=== PATIENT | female | born 1940 | race Caucasian/White ===

== ENCOUNTER 2017-12-16 23:30 | Inpatient (IN) | payer OTHER, MEDICARE ==
[~2017-12-16] VITALS: Ht 149.9 cm; Wt 59.0 kg
[~2017-12-16 23:30] MED LIST: LEVA250T PO; LISI-360 PO; MAGN400T19 PO; METO5TAB PO; OMEP20.62 PO; POTA-267 PO; SIMV40TA OR; XALA0.00 LEFT EYE
[2017-12-16 23:39] VITALS: BP 205/97; PULSE 80; RESP 18; TEMP 98.7; O2SAT 98
[2017-12-16 23:40] VITALS: O2SAT 98
[2017-12-16] MEDS ORDERED: SODIUM CHLOR 0.9% 1000 ML INJ 1,000 ML IV ONE (23:49)
[2017-12-16] MEDS ORDERED: PRAV20TA2 PO (23:55)
[2017-12-16] MEDS ORDERED: LISI2.5T3 PO (23:55)
[2017-12-16] MEDS ORDERED: LATA0.002 EACH EYE (23:55)
[2017-12-16] MEDS ORDERED: VENL37.5 PO (23:55)
[2017-12-17] VITALS (16 sets, daily range): BP systolic 149–205; BP diastolic 70–83; PULSE 64–87; RESP 15–19; TEMP 97.8–98.7; O2SAT 93–100
--- NOTE | 2017-12-17 | PD ---
HPI Chief Complaint: Stroke Alert Time Seen by Provider: 23:49 Travel History International Travel<30 days: No Contact w/Intl Traveler<30days: No Traveled to known affect area: No History of Present Illness HPI The patient is a 77 year old female who presents to the [facility] emergency department with a history of reportedly sometime between 930 and 10 PM this evening noticing she was having difficulty moving the right side of her face. The patient reports that she noticed that she had facial weakness when she tried to drink out of a bottle of water. She reports that she began to have drooling and had difficulty speaking due to problems moving the right side of her face. She reports having numbness on the right side of her face. She denies having any new numbness or tingling to her extremities. She reports that she at times over the last year does have numbness to the third digit of the left hand. She does report incidentally that she did have weakness of her left leg earlier today around dinnertime at 4 PM. She reports that she was able to walk and did not tell any family members. She reports that this has resolved. She denies any weakness of her extremities currently. She denies having any difficulty with word finding ability. She denies having any vision changes. She denies having any prior history of stroke. She reports that she takes a low-dose aspirin every other day. She did take a low-dose aspirin when she had onset of symptoms. The patient additionally reports that earlier today around 9 PM she had sudden left-sided chest pain that was sharp in character and lasted for a few seconds. She denies having any chest pain since then. She denies any history of cardiac disease. On review of systems otherwise, the patient denies having any known recent fevers, cough, congestion, neck pain, shortness of breath, abdominal pain, vomiting, diarrhea, blood in her stool or black or tarry stools, or urinary symptoms. [facility] Past Medical History Narrative Medical The patient's past medical history is significant for hypertension, hyperlipidemia, glaucoma. Asthma: No Blood Disorders: No Anxiety: No Depression: No Heart Rhythm Problems: No Cancer: No Cardiovascular Problems: Yes High Cholesterol: Yes Chemotherapy: No Chest Pain: No Congestive Heart Failure: No COPD: No Cerebrovascular Accident: No Diabetes: No Endocrine: No Gastrointestinal Disorders: No GERD: No Genitourinary: No Headaches: No Hiatal Hernia: No Hypertension: Yes Immune Disorder: No Musculoskeletal: No Neurologic: No Psychiatric: No Reproductive: No Respiratory: No Migraines: No Radiation Therapy: No Seizures: No Sickle Cell Disease: No Sleep Apnea: No Thyroid Disease: No Ulcer: No Tetanus Vaccination: < 5 Years Past Surgical History Narrative Surgical The patient's past surgical history is significant for an appendectomy, hysterectomy, cholecystectomy, laparoscopy with lysis of adhesions. AICD: No Appendectomy: Yes (2005) Arteriovenous Shunt: No Cardiac Surgery: No Cholecystectomy: No Hysterectomy: Yes (1982) Insulin Pump: No Joint Replacement: No Pacemaker: No Thoracic Surgery: No Social History Alcohol Use: No Tobacco Use: No Substance Use: No Allergies-Medications (Allergen,Severity, Reaction): Coded Allergies: No Known Allergies (Verified , 10/11/13) Reported Meds & Prescriptions Reported Meds & Active Scripts Active Reported Latanoprost Opth Drops (Latanoprost) 0.005% Drops 1 Drop EACH EYE HS Refrigerate until opened. Effexor (Venlafaxine HCl) 37.5 Mg Tab 37.5 Mg PO DAILY Lisinopril 2.5 Mg Tab Unknown Dose PO DAILY Pravastatin 20 Mg Tab 20 Mg PO DAILY Review of Systems Except as stated in HPI: all other systems reviewed are Neg General / Constitutional: No: Fever Eyes: No: Visual changes HENT: No: Headaches Cardiovascular: Positive: Chest Pain or Discomfort Respiratory: No: Shortness of Breath Gastrointestinal: No: Abdominal Pain Genitourinary: No: Dysuria Musculoskeletal: No: Pain Skin: No Rash Neurologic: Positive: Weakness, Focal Abnormalities, Slurred Speech, Sensory Disturbance, No: Change in Mentation Psychiatric: No: Depression Endocrine: No: Polydipsia Hematologic/Lymphatic: No: Easy Bruising Physical Exam Narrative General: The patient is a well-developed well-nourished female with obvious right-sided facial droop. Initial systolic blood pressure of 205. Head and Neck exam: Head is normocephalic atraumatic. Eyes: EOMI, pupils are equal round and reactive to light. Nose: Midline septum with pink mucous membranes Mouth: Dentition unremarkable. Moist mucus membranes. Posterior oropharynx is not erythematous. No tonsillar hypertrophy. Uvula midline. Airway patent. Neck: No palpable lymphadenopathy. No nuchal rigidity. No thyromegaly. Cardiovascular: Regular rate and rhythm without murmurs, gallops, or rubs. No pulse deficit to the extremities on simultaneous auscultation and palpation of her radial artery. Lungs: Clear to auscultation bilaterally. No wheezes, rhonchi, or rales. Abdomen: Soft, without tenderness to palpation in all 4 quadrants of the abdomen. No guarding, rebound, or rigidity. Normal bowel sounds are audible. No tenderness on palpation of McBurney's point. Negative Huston sign. Extremities: No clubbing, cyanosis, or edema. 2+ pulses in all 4 extremities. No calf tenderness on palpation. Back: No spinous process tenderness to palpation. No costovertebral angle tenderness to palpation. Neurologic Exam: The patient has a right-sided facial droop. The patient is able to raise both eyebrows. The patient has numbness noted to the right side of her face. The patient otherwise has strength that is 5/5 in all 4 extremities. Intact sensation in all other dermatomes. The patient has mildly slurred speech. The patient has no aphasia and is able to name various objects around the room. No dysdiadochokinesis. Good finger to nose. Skin Exam: No rash noted. Intact skin that is warm and dry. Data Data Last Documented VS Vital Signs Date Time Temp Pulse Resp B/P (MAP) Pulse Ox O2 Delivery O2 Flow Rate FiO2 12/17/17 00:40 69 18 162/73 (102) 96 12/16/17 23:40 21 12/16/17 23:39 98.7 Room Air Orders Orders Diet Npo (12/17/17 Breakfast) Activity Bed Rest (12/16/17 ) Electrocardiogram (12/16/17 ) I-Stat Profile (12/16/17 23:49) Prothrombin Time / Inr (Pt) (12/16/17 23:49) Act Partial Throm Time (Ptt) (12/16/17 23:49) Complete Blood Count With Diff (12/16/17 23:49) Fibrinogen (12/16/17 23:49) Creatine Kinase (Cpk) (12/16/17 23:49) Troponin I (12/16/17 23:49) Ua Includes Microscopic (12/16/17 23:49) Drug Screen, Random Urine (12/16/17 23:49) Type And Screen (12/16/17 23:49) Ct Brain W/O Iv Contrast(Rout) (12/16/17 ) Cta Brain W Iv Contrast W 3d (12/16/17 23:49) Cta Neck W Iv Contrast W 3d (12/16/17 23:49) Beta Hcg (Quant/Titer) (12/16/17 23:49) Consult Neurology (12/16/17 ) Blood Glucose (12/16/17 23:49) Ecg Monitoring (12/16/17 23:49) Neuro Checks Q2HX12,Q4H (12/16/17 23:49) Nursing Bedside Swallow Assess .ONCE (12/16/17 23:49) Iv Access Insert/Monitor (12/16/17 23:49) NPO (12/16/17 23:49) Oximetry (12/16/17 23:49) Resp Oxygen Nc Stroke (12/16/17 ) Sodium Chlor 0.9% 1000 Ml Inj (Ns 1000 M (12/16/17 23:49) Cath For Specimen (12/16/17 23:49) Nicardipine Inj (Cardene Inj) (12/17/17 00:15) ^ Call Pharmacy (12/17/17 00:51) Nih Stroke Scale - Nihss .ONCE (12/17/17 00:51) Anticoagulant Alert (12/17/17 00:51) ^ Post Infusion Restrictions (12/17/17 00:51) ^ Medication Alert (12/17/17 00:51) Vital Signs (Adult) .As directed (12/17/17 00:51) Notify Dr: Blood Pressure (12/17/17 00:51) ^ Medication Alert (12/17/17 00:51) Alteplase Bolus (Activase Bolus) (12/17/17 01:00) Alteplase Drip (Activase Drip) (12/17/17 01:00) Sodium Chloride 0.9% Inj (Ns Inj) (12/17/17 01:00) Misc Nursing Information (12/17/17 01:00) Resp Oxygen Nc Stroke (12/17/17 ) Ct Brain W/O Iv Contrast(Rout) (12/18/17 ) Admit Order (Ed Use Only) (12/17/17 00:52) Labs Laboratory Tests Test 12/16/17 23:45 12/16/17 23:49 White Blood Count 7.5 TH/MM3 Red Blood Count 4.53 MIL/MM3 Hemoglobin 11.9 GM/DL Hematocrit 36.2 % Mean Corpuscular Volume 79.9 FL Mean Corpuscular Hemoglobin 26.3 PG Mean Corpuscular Hemoglobin Concent 32.9 % Red Cell Distribution Width 13.5 % Platelet Count 165 TH/MM3 Mean Platelet Volume 8.7 FL Neutrophils (%) (Auto) 49.6 % Lymphocytes (%) (Auto) 38.8 % Monocytes (%) (Auto) 8.1 % Eosinophils (%) (Auto) 2.6 % Basophils (%) (Auto) 0.9 % Neutrophils # (Auto) 3.7 TH/MM3 Lymphocytes # (Auto) 2.9 TH/MM3 Monocytes # (Auto) 0.6 TH/MM3 Eosinophils # (Auto) 0.2 TH/MM3 Basophils # (Auto) 0.1 TH/MM3 CBC Comment DIFF FINAL Differential Comment Prothrombin Time 10.0 SEC Prothromb Time International Ratio 1.0 RATIO Activated Partial Thromboplast Time 24.7 SEC Fibrinogen 320 mg/dL Bedside Hemoglobin 12.2 G/DL Bedside Hematocrit 36.0 % Bedside Sodium 141 MMOL/L Bedside Potassium 3.9 MMOL/L Bedside Chloride 104 MMOL/L Bedside Blood Urea Nitrogen 26 MG/DL Bedside Creatinine 1.0 MG/DL Bedside Glucose 129 MG/DL Total Creatine Kinase 65 U/L Troponin I 0.05 NG/ML Human Chorionic Gonadotropin, Quant 3 MIU/ML MDM Medical Screen Exam Complete: Yes Emergency Medical Condition: Yes Medical Record Reviewed: Yes EKG Prior to Arrival: No Differential Diagnosis Ischemic stroke, versus TIA, versus hemorrhagic stroke, versus intracranial mass , versus Bahena's palsy Narrative Course During the course of the patient's emergency department visit, the patient's history, examination, and differential diagnosis were reviewed with the patient. The patient was placed on a cardiac cath lab radiology technologist with oximetry and frequent blood pressure monitoring. The patient had IV access obtained and blood work sent for analysis. The patient had an EKG done on arrival. The patient's EKG shows a sinus rhythm heart rate of 78, QRS duration is 90 ms, QTC [address] segment elevation. A stroke alert was called after the patient's initial assessment. The patient blood sugar was 116. The patient's i-STAT with creatinine revealed a creatinine 1.0, sodium 141, potassium 3.9, chloride 104, BUN 26, glucose 129, hemoglobin 12.2. The patient's case was discussed with Dr. Benson initially at 2346 and then again at 12:[address] scan of the brain was read as negative by Dr. Silva for intracranial hemorrhage. The patient's NIH score was noted to be 4. The patient was offered TPA. The patient consented to TPA administration. It was initially written that the patient be started on Cardene for her elevated blood pressure systolic of 205, however this quickly came down on its own to 176/81 prior to TPA administration. Risks and benefits for tPA were discussed with the patient and the patient's . Risks including hemorrhage, including potentially fatal GI and intracranial bleeding which can result in long-term serious disability or were discussed. Benefits including resolution of symptoms were discussed. The patient consented verbally to proceed with therapy. The patient's CBC revealed a white count of 7.5, platelets 165 with 8.1 monocytes, PT 10, INR 1.0, PTT 24.7, fibrinogen 320 Radiology studies were reviewed and remarkable for a CTA of the head and neck that showed no acute abnormality. The patient's results were discussed with the patient, including the plan of care. I explained that further testing and/ or monitoring is indicated based on the patient's history, examination, and/ or laboratory findings. Therefore, I recommended admission for additional evaluation. The patient expressed understanding and was agreeable with this plan. The patient was admitted to the hospital in guarded condition and sent to a bed under the care of customs examiner service. Critical Care Narrative Aggregate critical care time was 36 minutes. Time to perform other separately billable procedures was not included in the critical care time. My time did not include minutes spent treating any other patients simultaneously or on activities that did not directly contribute to the patient's treatment. The services I provided to this patient were to treat and/or prevent clinically significant deterioration that could result in: Progression of neurologic disability, versus intracranial hemorrhage I provided critical care services requiring my management, as noted below: Chart data review, documentation time, medication orders and management, vital sign assessments/reviewing monitor data, ordering and reviewing lab tests, ordering and interpreting/reviewing x-rays and diagnostic studies, care of the patient and discussion of the patient with the admitting physicians. Stroke Alert NIHSS NIH Stroke Scale Result: 4 NIHSS Time Completed: 23:50 Physician Communication Physician Communication The patient's case including history, pertinent physical examination findings, and laboratory studies were discussed with Dr. Benson at 23:46 and again at 12: 17 AM. It was agreed that the patient would be admitted to the customs examiner service. I spoke to Dr. Whitfield regarding this patient's case. He did agree to admit the patient for continued evaluation and treatment. Diagnosis Diagnosis: Primary Impression: Ischemic stroke Admitting Physician Requests: Admit Karen Moody MD Dec 16, 2017 23:59
--- NOTE | 2017-12-17 00:03 | RADRPT ---
EXAM DATE/TIME: 12/16/2017 23:53 [facility] COMPARISON: No previous studies available for comparison. INDICATIONS : Stroke alert; left sided weakness. RADIATION DOSE: 39.73 CTDIvol (mGy) This report was called by to Dr Moody at 0001 am MEDICAL HISTORY : Non-responsive. SURGICAL HISTORY : Non-responsive. ENCOUNTER: Initial ACUITY: 1 day PAIN SCALE: Non-responsive LOCATION: cranial TECHNIQUE: Multiple contiguous axial images were obtained of the head. Using automated exposure control and adj ustment of the mA and/or kV according to patient size, radiation dose was kept as low as reasonably a chievable to obtain optimal diagnostic quality images. DICOM format image data is available electro nically for review and comparison. FINDINGS: CEREBRUM: The ventricles are normal for age. No evidence of midline shift, mass lesion, hemorrhage or acute in farction. No extra-axial fluid collections are seen. POSTERIOR FOSSA: The cerebellum and brainstem are intact. The 4th ventricle is midline. The cerebellopontine angle i s unremarkable. EXTRACRANIAL: The visualized portion of the orbits is intact. SKULL: The calvaria is intact. No evidence of skull fracture. CONCLUSION: 1. No acute intracranial abnormality. Von Milner MD on December 16, 2017 at 23:58 Board Certified Radiologist. This report was verified electronically.
--- NOTE | 2017-12-17 00:09 | RADRPT ---
EXAM DATE/TIME: 12/16/2017 23:53 [facility] COMPARISON: No previous studies available for comparison. INDICATIONS : Stroke alert; left sided weakness. IV CONTRAST: 65 cc Omnipaque 350 (iohexol) IV ; Cumulative dose for multiple exams. RADIATION DOSE: 28.61 CTDIvol (mGy) ; Combined studies MEDICAL HISTORY : Non-responsive. SURGICAL HISTORY : Non-responsive. ENCOUNTER: Initial ACUITY: 1 day PAIN SCALE: Non-responsive LOCATION: cranial TECHNIQUE: Volumetric scanning was performed using a multi-row detector CT scanner. The data was post processed with a variety of visualization algorithms including full volume maximum intensity projection, multi -planar sliding thin slab reformation, curved planar reformation, and surface rendering techniques. Using automated exposure control and adjustment of the mA and/or kV according to patient size, radiat ion dose was kept as low as reasonably achievable to obtain optimal diagnostic quality images. DICO M format image data is available electronically for review and comparison. FINDINGS: Anterior circulation: Distal intracranial internal carotid arteries are patent with flow extending to the middle and anteri or cerebral arteries. There is no evidence for aneurysm, vessel truncation or stenosis, and no eviden ce for vascular malformation. Posterior circulation: Symmetric distal vertebral arteries with flow extending to basilar artery. There is no evidence for aneurysm, vessel truncation or stenosis, and no evidence for vascular malformation. CONCLUSION: 1. Unremarkable head CTA. Specifically, no evidence for significant flow limiting stenosis or large v essel occlusion. Von Milner MD on December 17, 2017 at 0:05 Board Certified Radiologist. This report was verified electronically.
[2017-12-17 00:13] LABS: AUTOMATED NEUTROPHIL # 3.7 TH/MM3 (1.8-7.7); BASOPHIL # 0.1 TH/MM3 (0-0.2); BASOPHIL % 0.9 % (0.0-2.0); EOSINOPHIL # 0.2 TH/MM3 (0-0.4); EOSINOPHIL % 2.6 % (0.0-4.0); HEMATOCRIT 36.2 % (35.0-46.0); HEMOGLOBIN 11.9 GM/DL (11.6-15.3); LYMPH % 38.8 % (9.0-44.0); LYMPHOCYTE # 2.9 TH/MM3 (1.0-4.8); MEAN CELL VOLUME 79.9 FL (80.0-100.0); MEAN CORPUSCULAR HEMOGLOBIN 26.3 PG (27.0-34.0); MEAN CORPUSCULAR HGB CONC 32.9 % (32.0-36.0); MEAN PLATELET VOLUME 8.7 FL (7.0-11.0); MONO % 8.1 % (0.0-8.0); MONOCYTE # 0.6 TH/MM3 (0-0.9); NEUT % 49.6 % (16.0-70.0); PLATELET COUNT 165 TH/MM3 (150-450); RED BLOOD COUNT 4.53 MIL/MM3 (4.00-5.30); RED CELL DISTRIBUTION WIDTH 13.5 % (11.6-17.2); WHITE BLOOD COUNT 7.5 TH/MM3 (4.0-11.0)
[2017-12-17] MEDS ORDERED: niCARdipine INJ 25 MG in SODIUM CHLOR 0.9% 250 ML INJ 240 ML IV ONE (00:15)
--- NOTE | 2017-12-17 00:16 | RADRPT ---
EXAM DATE/TIME: 12/16/2017 23:53 [facility] COMPARISON: No previous studies available for comparison. INDICATIONS : Stroke alert; left sided weakness. IV CONTRAST: 65 cc Omnipaque 350 (iohexol) IV RADIATION DOSE: 28.91 CTDIvol (mGy) ; Combined studies MEDICAL HISTORY : Non-responsive. SURGICAL HISTORY : Non-responsive. ENCOUNTER: Initial ACUITY: 1 day PAIN SCALE: Non-responsive LOCATION: neck Elevated flow velocities and ICA/CCA ratios have been found to correlate with increased degrees of vessel stenosis, calculated as percentage of diameter relative to a normal segment of distal ICA/CCA. TECHNIQUE: Volumetric scanning was performed using a multirow detector CT scanner. The data was post processed with a variety of visualization algorithms including full-volume maximum intensity projection, multip lanar sliding thin-slab reformation, curved-planar reformation, and surface-rendering techniques. Us ing automated exposure control and adjustment of the mA and/or kV according to patient size, radiatio n dose was kept as low as reasonably achievable to obtain optimal diagnostic quality images. DICOM f ormat image data is available electronically for review and comparison. FINDINGS: AORTIC ARCH: There is a three-vessel origin of the great vessels from the aorta. No evidence of ostial narrowing. RIGHT CAROTID: The common carotid artery is intact. The carotid bulb has a normal configuration without ulceration o r narrowing. The internal carotid artery lumen is smooth without stenosis. The external carotid frantz ry is intact. LEFT CAROTID: The common carotid artery is intact. The carotid bulb has a normal configuration without ulceration or narrowing. The internal carotid artery lumen is smooth without stenosis. The external carotid ar river is intact. VERTEBRALS: The vertebral arteries have a symmetric diameter. No stenotic lesions are seen. CONCLUSION: 1. No significant carotid flow-limiting stenosis. 2. Patent bilateral vertebral arteries. Von Milner MD on December 17, 2017 at 0:12 Board Certified Radiologist. This report was verified electronically.
[2017-12-17 00:33] LABS: TROPONIN I 0.05 NG/ML (0.02-0.05)
[2017-12-17] MEDS ORDERED: ALTEPLASE BOLUS 9 MG/9 ML SYR IV ONE (01:00)
[2017-12-17] MEDS ORDERED: SODIUM CHLORIDE 0.9% 50 ML BAG IVF ONE (01:00)
[2017-12-17] MEDS ORDERED: MISCELLANEOUS NURSING INFORMATION XX PRN (01:00)
[2017-12-17] MEDS ORDERED: ALTEPLASE DRIP IV ONE (01:00)
[2017-12-17] MEDS ORDERED: MAGNESIUM HYDROXIDE SUSP 30 ML CUP PO PRN (02:00)
[2017-12-17] MEDS ORDERED: SENNOSIDES 8.6 MG TAB PO PRN (02:00)
[2017-12-17] MEDS ORDERED: MISCELLANEOUS NURSING INFORMATION XX SCH (02:00)
[2017-12-17] MEDS ORDERED: CHLORHEXIDINE GLUCONATE 2 % 1 PACK (2 CLOTHS) TOP PRN (02:00)
[2017-12-17] MEDS ORDERED: SODIUM CHLORIDE 0.9% FLUSH 10 ML FLUSH IV FLUSH PRN (02:00)
[2017-12-17] MEDS ORDERED: ONDANSETRON HCL 4 MG/2 ML VIAL IV PUSH PRN (02:00)
[2017-12-17] MEDS ORDERED: ACETAMINOPHEN 325 MG TAB PO PRN (02:00)
[2017-12-17] MEDS ORDERED: BISACODYL 10 MG SUPP RECTAL PRN (02:00)
[2017-12-17] MEDS ORDERED: LACTULOSE SYRUP 20 GM/30 ML CUP PO PRN (02:00)
[2017-12-17] MEDS ORDERED: RESP: ALBUTEROL 2.5 MG/IPRATROPIUM 0.5 MG NEB (PRN) INH (02:00)
[2017-12-17] MEDS ORDERED: TEMAZEPAM 15 MG CAP PO PRN (02:00)
[2017-12-17 02:22] LABS: BILIRUBIN, URINE NEG (NEG); BLOOD, URINE NEG (NEG); GLUCOSE,URINE NEG (NEG); KETONE, URINE NEG (NEG); MUCUS URINE FEW /lpf (OCC); NITRITE,URINE NEG (NEG); PH, URINE 6.5 (5.0-8.5); RENAL EPITHELIAL CELLS <1 /hpf; SQUAMOUS EPITHELIAL CELL URINE <1 /hpf (0-5); TRANSITIONAL EPI CELLS, URINE <1 /hpf; URINE COLOR LIGHT-YELLOW (YELLW/STRAW); URINE LEUKOCYTE ESTERASE MOD (NEG)
[2017-12-17] MEDS ORDERED: POTASSIUM CHLOR 20 MEQ PREMIX 100 ML IV PRN ×2 (02:30)
[2017-12-17] MEDS ORDERED: MAGNESIUM SULFATE INJ 2 GM in SODIUM CHLORIDE 0.9% INJ 96 ML IV PRN (02:30)
[2017-12-17] MEDS ORDERED: POTASSIUM PHOSPHATE INJ 30 MMOL in SODIUM CHLOR 0.9% 250 ML INJ 250 ML IV PRN (02:30)
[2017-12-17] MEDS ORDERED: POTASSIUM PHOSPHATE MONOBASIC 500 MG TAB PO PRN (02:30)
[2017-12-17] MEDS ORDERED: POTASSIUM PHOSPHATE MONOBASIC 500 MG TAB PO/TUBE PRN (02:30)
[2017-12-17] MEDS ORDERED: POTASSIUM CHLORIDE 25 MEQ EFFERVESCENT TAB PO PRN (02:30)
[2017-12-17] MEDS ORDERED: MAGNESIUM OXIDE 400 MG TAB PO PRN (02:30)
[2017-12-17] MEDS ORDERED: SODIUM PHOSPHATE INJ 30 MMOL in SODIUM CHLOR 0.9% 250 ML INJ 240 ML IV PRN (02:30)
[2017-12-17] MEDS ORDERED: POTASSIUM CHLOR 40 MEQ PREMIX 100 ML IV PRN ×2 (02:30)
[2017-12-17] MEDS ORDERED: MAGNESIUM SULFATE INJ 4 GM in SODIUM CHLORIDE 0.9% INJ 92 ML IV PRN (02:30)
[2017-12-17] MEDS: SODIUM CHLOR 0.9% 1000 ML INJ 1,000 ML IV SCH ×3 (02:30→21:53)
--- NOTE | 2017-12-17 02:32 | HHI.HP ---
HPI Service Critical Care Medicine Primary Care Physician Unknown Admission Diagnosis Stroke Alert s/p TPA Diagnosis: Travel History International Travel<30 Days: No Contact w/Intl Traveler <30 Da: No Traveled to Known Affected Are: No History of Present Illness 77 year old female presents to the [facility] emergency department with a history of noticing she was having difficulty moving the right side of her face. The patient reports that she noticed that she had facial weakness when she tried to drink out of a bottle of water. She began to have drooling and had difficulty speaking due to problems moving the right side of her face. She was having numbness on the right side of her face. She denies having any new numbness or tingling to her extremities. She at times over the last year does have numbness to the third digit of the left hand. She did have weakness of her left leg earlier today around dinnertime at 4 PM. Case was discussed with the neurologist on-call and patient has received TPA infusion per stroke protocol. The CT brain and CTA of the head and neck was negative for acute changes or occlusions. Review of Systems Constitutional: DENIES: Diaphoretic episodes, Fatigue, Fever, Weight gain, Weight loss, Chills, Dizziness, Change in appetite, Night Sweats Endocrine: DENIES: Abnorml menstrual pattern, Heat/cold intolerance, Polydipsia , Polyuria, Polyphagia Eyes: DENIES: Blurred vision, Diplopia, Eye inflammation, Eye pain, Vision loss , Photosensitivity, Double Vision Ears, nose, mouth, throat: DENIES: Tinnitus, Hearing loss, Vertigo, Nasal discharge, Oral lesions, Throat pain, Hoarseness, Ear Pain, Running Nose, Epistaxis, Sinus Pain, Toothache, Odynophagia Respiratory: DENIES: Apneas, Cough, Snoring, Wheezing, Hemoptysis, Sputum production, Shortness of breath Cardiovascular: DENIES: Chest pain, Palpitations, Syncope, Dyspnea on Exertion , PND, Lower Extremity Edema, Orthopnea, Claudication Gastrointestinal: DENIES: Abdominal pain, Black stools, Bloody stools, Constipation, Diarrhea, Nausea, Vomiting, Difficulty Swallowing, Anorexia Genitourinary: DENIES: Abnormal vaginal bleeding, Dysmenorrhea, Dyspareunia, Sexual dysfunction, Urinary frequency, Urinary incontinence, Urgency, Hematuria , Dysuria, Nocturia, Vaginal discharge Musculoskeletal: DENIES: Joint pain, Muscle aches, Stiffness, Joint Swelling, Back pain, Neck pain Integumentary: DENIES: Abnormal pigmentation, Pruritus, Rash, Nail changes, Breast masses, Breast skin changes, Nipple discharge Hematologic/lymphatic: DENIES: Bruising, Lymphadenopathy Immunologic/allergic: DENIES: Eczema, Urticaria Neurologic: COMPLAINS OF: Localized weakness, Paresthesias, Speech Problems, Poor Balance, DENIES: Abnormal gait, Headache, Seizures, Tremor Psychiatric: DENIES: Anxiety, Confusion, Mood changes, Depression, Hallucinations, Agitation, Suicidal Ideation, Homicidal Ideation, Delusions Past Family Social History Allergies: Coded Allergies: No Known Allergies (Verified , 10/11/13) Past Medical History Hypertension Dyslipidemia Past Surgical History Appendectomy: Yes (2005) Hysterectomy: Yes (1982) Reported Medications Reported Meds & Active Scripts Active Reported Latanoprost Opth Drops (Latanoprost) 0.005% Drops 1 Drop EACH EYE HS Refrigerate until opened. Effexor (Venlafaxine HCl) 37.5 Mg Tab 37.5 Mg PO DAILY Lisinopril 2.5 Mg Tab Unknown Dose PO DAILY Pravastatin 20 Mg Tab 20 Mg PO DAILY Active Ordered Medications Current Medications Medications (Trade) Dose Ordered Sig/Rajni Route PRN Reason Start Time Stop Time Status Last Admin Dose Admin Sodium Chloride 1,000 ml @ 70 mls/hr [id number] ONCE IV 12/16/17 23:49 12/17/17 14:06 12/17/17 00:23 Miscellaneous Information No Heparin, Warfarin, Aspir... UNSCH PRN XX SEE DOSE INSTRUCTIONS 12/17/17 01:00 12/18/17 00:59 Latanoprost (Xalatan 0.005% Opth Soln) 1 drop HS EACH EYE 12/17/17 21:00 Pravastatin Sodium (Pravachol) 20 mg DAILY PO 12/17/17 09:00 Venlafaxine HCl (Effexor Xr) 37.5 mg DAILY PO 12/17/17 09:00 Sodium Chloride 1,000 ml @ 84 mls/hr [id number] IV 12/17/17 02:00 Sodium Chloride (NS Flush) 2 ml UNSCH PRN IV FLUSH FLUSH AFTER USING IV ACCESS 12/17/17 02:00 Sodium Chloride (NS Flush) 2 ml BID IV FLUSH 12/17/17 09:00 Acetaminophen (Tylenol) 650 mg Q6H PRN PO PAIN 1-10 AND/OR FEVER >101F 12/17/17 02:00 Famotidine (Pepcid Inj) 20 mg Q12HR IV PUSH 12/17/17 09:00 Ondansetron HCl (Zofran Inj) 4 mg Q6H PRN IV PUSH NAUSEA OR VOMITING 12/17/17 02:00 Temazepam (Restoril) 15 mg HS PRN PO INSOMNIA 12/17/17 02:00 Albuterol/ Ipratropium (Duoneb Neb) 1 ampule Q2HR NEB PRN INH WHEEZING 12/17/17 02:00 Heparin Sodium (Porcine) (Heparin Inj) 5,000 units Q12H SQ 12/18/17 02:00 Miscellaneous Information 1 [id number] XX 12/17/17 02:00 Chlorhexidine Gluconate (Chlorhexidine 2% Cloth) 3 pack Taper DAILY@04 TOP 12/17/17 04:00 12/13/18 03:59 Chlorhexidine Gluconate (Chlorhexidine 2% Cloth) 3 pack UNSCH PRN TOP HYGIENIC CARE 12/17/17 02:00 Senna/Docusate Sodium (Lesli-Colace) 1 tab BID PO 12/17/17 09:00 Magnesium Hydroxide (Milk Of Magnesia Liq) 30 ml Q12H PRN PO Mild constipation 12/17/17 02:00 Sennosides (Senokot) 17.2 mg Q12H PRN PO Moderate constipation 12/17/17 02:00 Bisacodyl (Dulcolax Supp) 10 mg DAILY PRN RECTAL SEVERE CONSITIPATION 12/17/17 02:00 Lactulose (Lactulose Liq) 30 ml DAILY PRN PO SEVERE CONSITIPATION 12/17/17 02:00 Family History No family history of early coronary artery disease Social History Negative for tobacco, alcohol, or illicit drug abuse Physical Exam Vital Signs Vital Signs Date Time Temp Pulse Resp B/P (MAP) Pulse Ox O2 Delivery O2 Flow Rate FiO2 12/17/17 00:40 69 18 162/73 (102) 96 12/17/17 00:33 74 18 176/81 (112) 96 12/17/17 00:02 87 18 205/81 (122) 100 12/16/17 23:40 98 21 12/16/17 23:40 98 21 12/16/17 23:39 98.7 80 18 205/97 (133) 98 Room Air 12/16/17 23:39 83 18 100 Physical Exam GENERAL: Well-nourished, well-developed patient. SKIN: Warm and dry. HEAD: Normocephalic. EYES: No scleral icterus. No injection or drainage. NECK: Supple, trachea midline. No JVD or lymphadenopathy. CARDIOVASCULAR: Regular rate and rhythm without murmurs, gallops, or rubs. RESPIRATORY: Breath sounds equal bilaterally. No accessory muscle use. GASTROINTESTINAL: Abdomen soft, non-tender, nondistended. MUSCULOSKELETAL: No cyanosis, or edema. BACK: Nontender without obvious deformity. NEURO EXAM: GCS: 15 Mental Status: The patient is alert and oriented to person, place, and time with normal speech. There is a minimal facial droop on the right Laboratory Laboratory Tests Test 12/16/17 23:45 12/16/17 23:49 12/17/17 02:07 White Blood Count 7.5 Red Blood Count 4.53 Hemoglobin 11.9 Hematocrit 36.2 Mean Corpuscular Volume 79.9 Mean Corpuscular Hemoglobin 26.3 Mean Corpuscular Hemoglobin Concent 32.9 Red Cell Distribution Width 13.5 Platelet Count 165 Mean Platelet Volume 8.7 Neutrophils (%) (Auto) 49.6 Lymphocytes (%) (Auto) 38.8 Monocytes (%) (Auto) 8.1 Eosinophils (%) (Auto) 2.6 Basophils (%) (Auto) 0.9 Neutrophils # (Auto) 3.7 Lymphocytes # (Auto) 2.9 Monocytes # (Auto) 0.6 Eosinophils # (Auto) 0.2 Basophils # (Auto) 0.1 CBC Comment DIFF FINAL Differential Comment Prothrombin Time 10.0 Prothromb Time International Ratio 1.0 Activated Partial Thromboplast Time 24.7 Fibrinogen 320 Bedside Hemoglobin 12.2 Bedside Hematocrit 36.0 Bedside Sodium 141 Bedside Potassium 3.9 Bedside Chloride 104 Bedside Blood Urea Nitrogen 26 Bedside Creatinine 1.0 Bedside Glucose 129 Total Creatine Kinase 65 Troponin I 0.05 Human Chorionic Gonadotropin, Quant 3 Urine Color LIGHT-YELLOW Urine Turbidity CLEAR Urine pH 6.5 Urine Specific [place] 1.036 Urine Protein NEG Urine Glucose (UA) NEG Urine Ketones NEG Urine Occult Blood NEG Urine Nitrite NEG Urine Bilirubin NEG Urine Urobilinogen LESS THAN 2.0 Urine Leukocyte Esterase MOD Urine RBC 1 Urine WBC 5 Urine Squamous Epithelial Cells <1 Urine Transitional Epithelial Cells <1 Urine Renal Epithelial Cells <1 Urine Mucus FEW Result Diagram: 12/16/17 5211 Septic Shock Reassessment Septic shock perfusion: reassessment completed Caprini VTE Risk Assessment Caprini VTE Risk Assessment: Mod/High Risk (score >= 2) Caprini Risk Assessment Model Point Value = 1 Point Value = 2 Point Value = 3 Point Value = 5 Age 41-60 Minor surgery BMI > 25 kg/m2 Swollen legs Varicose veins or History of unexplained or recurrent spontaneous Oral contraceptives or hormone replacement Sepsis (< 1 month) Serious lung disease, including pneumonia (< 1 month) Abnormal pulmonary function Acute myocardial infarction Congestive heart failure (< 1 month) History of inflammatory bowel disease Medical patient at bed rest Age 61-74 Arthroscopic surgery Major open surgery (> 45 min) Laparoscopic surgery (> 45 min) Malignancy Confined to bed (> 72 hours) Immobilizing plaster cast Central venous access Age >= 75 History of VTE Family history of VTE Factor V Leiden Prothrombin [id number] Lupus anticoagulant Anticardiolipin antibodies Elevated serum homocysteine Heparin-induced thrombocytopenia Other congenital or acquired thrombophilia Stroke (< 1 month) Elective arthroplasty Hip, pelvis, or leg fracture Acute spinal cord injury (< 1 month) Prophylaxis Regimen Total Risk Factor Score Risk Level Prophylaxis Regimen 0-1 Low Early ambulation 2 Moderate Order ONE of the following: *Sequential Compression Device (SCD) *Heparin 5000 units SQ BID 3-4 Higher Order ONE of the following medications: *Heparin 5000 units SQ TID *Enoxaparin/Lovenox 40 mg SQ daily (WT < 150 kg, CrCl > 30 mL/min) *Enoxaparin/Lovenox 30 mg SQ daily (WT < 150 kg, CrCl > 10-29 mL/min) *Enoxaparin/Lovenox 30 mg SQ BID (WT < 150 kg, CrCl > 30 mL/min) AND/OR *Sequential Compression Device (SCD) 5 or more Highest Order ONE of the following medications: *Heparin 5000 units SQ TID (Preferred with Epidurals) *Enoxaparin/Lovenox 40 mg SQ daily (WT < 150 kg, CrCl > 30 mL/min) *Enoxaparin/Lovenox 30 mg SQ daily (WT < 150 kg, CrCl > 10-29 mL/min) *Enoxaparin/Lovenox 30 mg SQ BID (WT < 150 kg, CrCl > 30 mL/min) AND *Sequential Compression Device (SCD) Assessment and Plan Assessment and Plan CVA/TIA - CTA negative - Status post TPA administration - Hemoglobin A1c and lipid profile a.m. - Blood pressure goal less than 180 - PT and OT - Neurology consultation - 2-D echo - MRI brain Hypertension - Resume home dose of lisinopril - SBP goal per TPA protocol less than 180 - Telemetry Dyslipidemia - Atorvastatin DVT GI prophylaxis - Teds SCDs - Early aggressive mobilization - Start subcutaneous heparin 24 hours post TPA administration Critical Care: The total critical care time was 35 minutes. Time to perform other separately billable procedures was not included in the critical care time. Ashish Whitfield MD Dec 17, 2017 02:31
[2017-12-17] MEDS: CHLORHEXIDINE GLUCONATE 2 % 1 PACK (2 CLOTHS) TOP SCH (04:00)
--- NOTE | 2017-12-17 08:11 | MB ---
cc: SHIKHA SPEAR M.D. DATE OF CONSULTATION 12/17/2017 HISTORY OF PRESENT ILLNESS The patient is a 77-year-old seen in neurological consultation. The case was discussed with the ED physician, Dr. Moody, around midnight on a couple of occasions. The patient came in with right facial weakness. At that time the stroke scale was determined to be 4. CT brain was negative. She was felt to be a candidate for TPA which was given after her blood pressure spontaneously dropped to ranges within the TPA treatment. She subsequently had a CT angio of the head and neck showing no significant disease. She remains about the same. PAST MEDICAL HISTORY The patient has a history of hypertension and hyperlipidemia. She does not take aspirin because of some skin blisters or hemorrhages from aspirin. No history of stroke, TIA or seizures. NEUROLOGICAL EXAMINATION The neurological exam is showing normal mentation. Ocular movements and visual leonardo full. Pupils are equal and reactive. She does have a right facial weakness which is moderate to severe and appears to be a peripheral facial weakness. There is no arm or leg involvement. Reflexes are 2+ throughout and plantar responses flexor. ASSESSMENT Right facial weakness. 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 TPA was given after the case was discussed with the ED physician around midnight. She is doing well without complications from the TPA. I am ordering an MRI brain without contrast. Otherwise continue with the medical care. I have discussed this with the patient and nursing staff. The patient requested sedation as she is claustrophobic for the MRI to be completed. Checking a lipid profile. Medicine team to follow the patient. She had some chest pain yesterday as well but brief. Thank you for asking us to assist in her care. I will follow her with you. MD DAX Moreira/BT /7:30 AM /8:04 AM
[2017-12-17] MEDS ORDERED: LORazepam 2 MG/ML VIAL IV SCH (08:45)
[2017-12-17] MEDS: DOCUSATE SODIUM 50 MG/SENNA 8.6 MG TAB PO SCH ×2 (09:00→21:00)
[2017-12-17] MEDS: VENLAFAXINE HCL XR 37.5 MG CAP PO SCH (09:20)
[2017-12-17] MEDS: SODIUM CHLORIDE 0.9% FLUSH 10 ML FLUSH IV FLUSH SCH ×2 (09:21→21:00)
[2017-12-17] MEDS: FAMOTIDINE 20 MG/2 ML VIAL IV PUSH SCH ×2 (09:21→21:53)
[2017-12-17] MEDS: PRAVASTATIN SOD 20 MG TAB PO SCH (09:21)
[2017-12-17] MEDS: LISINOPRIL 10 MG TAB PO SCH (09:21)
--- NOTE | 2017-12-17 12:21 | EKG ---
Date Performed: 12/17/2017 Time Performed: 02:47:20 PTAGE: 77 years EKG: Sinus rhythm . Normal ECG PREVIOUS TRACING : 12/16/2017 23.42 Since the prior tracing, there has been no significant lamas DOCTOR: Rudi Vogel Interpretating Date/Time 12/17/2017 12:20:25
--- NOTE | 2017-12-17 12:21 | EKG ---
Date Performed: 12/17/2017 Time Performed: 07:43:42 PTAGE: 77 years EKG: Sinus rhythm . Normal ECG PREVIOUS TRACING : 12/17/2017 02.47 Since the prior tracing, there has been no significant lamas DOCTOR: Rudi Vogel Interpretating Date/Time 12/17/2017 12:20:16
--- NOTE | 2017-12-17 13:03 | RADRPT ---
EXAM DATE/TIME: 12/17/2017 12:31 [facility] COMPARISON: No previous studies available for comparison. INDICATIONS : Right sided facial droop. TPA given. MEDICAL HISTORY : None. SURGICAL HISTORY : Appendectomy. Hysterectomy. ENCOUNTER: Subsequent ACUITY: 2 day PAIN SCORE: 0/10 LOCATION: cranial TECHNIQUE: Multiplanar, multisequence MRI of the brain was performed without contrast. FINDINGS: CEREBRUM: The ventricles are normal for age. No evidence of midline shift, mass lesion, hemorrhage or acute in farction. No extraaxial fluid collections are seen. The pituitary gland and suprasellar cistern are normal in configuration. WHITE MATTER: No significant signal abnormalities are seen in the white matter. POSTERIOR FOSSA: The cerebellum and brainstem are intact. The 4th ventricle is midline. The cerebellopontine angle is unremarkable. The cerebellar tonsils are normal in position. DIFFUSION IMAGING: No focal areas of restricted diffusion are seen. No evidence of acute infarction. EXTRACRANIAL: The visualized portions of the orbits and paranasal sinuses are unremarkable. CONCLUSION: No evidence of acute infarct, hemorrhage, mass or edema. Joseph Schultz MD on December 17, 2017 at 12:59 Board Certified Radiologist. This report was verified electronically.
--- NOTE | 2017-12-17 14:25 | EKG ---
Date Performed: 12/16/2017 Time Performed: 23:42:02 PTAGE: 77 years EKG: Sinus rhythm NORMAL ECG Normalization compared to prior tracing PREVIOUS TRACING : 10/11/2013 00.18 DOCTOR: Rudi Vogel Interpretating Date/Time 12/17/2017 14:24:42
--- NOTE | 2017-12-17 15:12 | ECHRPT ---
Indication: CVA/TIA CONCLUSIONS The left ventricular systolic function is normal with an estimated ejection fraction in the range of 55-60%. Doppler parameters are consistent with impaired left ventricular relaxtion (grade 1 diastolic dysfun ction). Trace mitral valve regurgitation. [id number] aortic valve regurgitation. There is trace tricuspid valve regurgitation. BP: 171 / 83 HR: 64 Rhythm: Sinus MEASUREMENTS (Male / Female) Normal Values Technical Quality:Fair 2D ECHO LV Diastolic Diameter PLAX 4.1 cm 4.2 - 5.9 / 3.9 - 5.3 cm LV Systolic Diameter PLAX 2.7 cm IVS Diastolic Thickness 1.1 cm 0.6 - 1.0 / 0.6 - 0.9 cm LVPW Diastolic Thickness 1.1 cm 0.6 - 1.0 / 0.6 - 0.9 cm LV Relative Wall Thickness 0.5 RV Internal Dim ED PLAX 2.3 cm LVOT Diameter 2.0 cm Aortic Root Diameter 3.0 cm LA Systolic Diameter LX 3.2 cm 3.0 - 4.0 / 2.7 - 3.8 cm M-MODE AV Cusp Separation MM 1.9 cm DOPPLER AV Peak Velocity 134.0 cm/s AV Peak Gradient 7.2 mmHg AV Mean Gradient 4.0 mmHg AV Velocity Time Integral 26.3 cm LVOT Peak Velocity 84.6 cm/s LVOT Peak Gradient 2.9 mmHg LVOT Velocity Time Integral 15.3 cm AV Area Cont Eq vti 1.8 cm AV Area Cont Eq pk 2.0 cm Mitral E Point Velocity 29.6 cm/s Mitral A Point Velocity 53.7 cm/s Mitral E to A Ratio 0.6 LV E' Lateral Velocity 6.2 cm/s Mitral E to LV E' Lateral Ratio 4.7 LV E' Septal Velocity 4.9 cm/s Mitral E to LV E' Septal Ratio 6.1 TR Peak Velocity 251.0 cm/s TR Peak Gradient 25.2 mmHg Right Atrial Pressure 10.0 mmHg Pulmonary Artery Systolic Pressu 35.2 mmHg Right Ventricular Systolic Press 35.2 mmHg PV Peak Velocity 71.4 cm/s PV Peak Gradient 2.0 mmHg FINDINGS LEFT VENTRICLE Normal left ventricular size. Wall thickness is normal. The left ventricular systolic function is normal with an estimated ejection fraction in the range of 55-60%. No regional wall motion abnormalities are present. Doppler parameters are consistent with impaired left ventricular relaxtion (grade 1 diastolic dysfun ction). RIGHT VENTRICLE Right ventricle grossly normal LEFT ATRIUM The left atrial size is [id number] dilated. RIGHT ATRIUM The right atrial size is mildly dilated. ATRIAL SEPTUM The interatrial septum not well visualized. AORTA The aortic root and proximal ascending aorta are normal in size on limited imaging. MITRAL VALVE Grossly normal mitral valve. No mitral valve stenosis. Trace mitral valve regurgitation. AORTIC VALVE Aortic valve sclerosis is present. Rsnz-[id number] aortic valve regurgitation. No aortic valve stenosis. TRICUSPID VALVE Grossly normal tricuspid valve. There is trace tricuspid valve regurgitation. The estimated pulmonary arterial pressure is 35.2 mmHg. PULMONARY VALVE Trivial pulmonary valve regurgitation. VESSELS The inferior vena cava was not well visualized. PERICARDIUM No pericardial effusion. Aaron Navarro DO (Electronically Signed) Final Date:17 December 2017 15:11
[2017-12-17] MEDS ORDERED: LATANOPROST 0.005% OPHT SOLN 2.5 ML BTL EACH EYE SCH (21:00)
[2017-12-18] VITALS (12 sets, daily range): BP systolic 155–179; BP diastolic 76–81; PULSE 59–85; RESP 17–37; TEMP 97.9–98.1; O2SAT 92–97
[2017-12-18] MEDS: CHLORHEXIDINE GLUCONATE 2 % 1 PACK (2 CLOTHS) TOP SCH (00:56)
--- NOTE | 2017-12-18 02:15 | RADRPT ---
EXAM DATE/TIME: 12/18/2017 01:55 [facility] COMPARISON: CT BRAIN W/O CONTRAST, December 16, 2017, 23:53. INDICATIONS : 24 hour post TPA. RADIATION DOSE: 34.04 CTDIvol (mGy) ; Patient motion MEDICAL HISTORY : None SURGICAL HISTORY : None. ENCOUNTER: Initial ACUITY: 2 days PAIN SCALE: 0/10 LOCATION: cranial TECHNIQUE: Multiple contiguous axial images were obtained of the head. Using automated exposure control and adj ustment of the mA and/or kV according to patient size, radiation dose was kept as low as reasonably a chievable to obtain optimal diagnostic quality images. DICOM format image data is available electro nically for review and comparison. FINDINGS: CEREBRUM: Mild cerebral volume loss. The ventricles are normal for degree of atrophy. No evidence of midline s hift, mass lesion, hemorrhage or acute infarction. No extra-axial fluid collections are seen. POSTERIOR FOSSA: The cerebellum and brainstem are intact. The 4th ventricle is midline. The cerebellopontine angle i s unremarkable. EXTRACRANIAL: The visualized portion of the orbits is intact. SKULL: The calvaria is intact. No evidence of skull fracture. CONCLUSION: 1. No significant intra-or extra-axial hemorrhage following TPA. 2. No acute intracranial abnormality. Von Milner MD on December 18, 2017 at 2:13 Board Certified Radiologist. This report was verified electronically.
[2017-12-18] MEDS: HEPARIN SODIUM - SQ 10,000 UNITS/ML VIAL SQ SCH ×2 (02:16→14:22)
[2017-12-18 04:26] LABS: AUTOMATED NEUTROPHIL # 4.5 TH/MM3 (1.8-7.7); BASOPHIL # 0.1 TH/MM3 (0-0.2); BASOPHIL % 1.1 % (0.0-2.0); EOSINOPHIL # 0.2 TH/MM3 (0-0.4); EOSINOPHIL % 2.8 % (0.0-4.0); HEMATOCRIT 33.6 % (35.0-46.0); HEMOGLOBIN 11.3 GM/DL (11.6-15.3); LYMPHOCYTE # 1.6 TH/MM3 (1.0-4.8); MEAN CELL VOLUME 79.9 FL (80.0-100.0); MEAN CORPUSCULAR HEMOGLOBIN 26.7 PG (27.0-34.0); MEAN CORPUSCULAR HGB CONC 33.5 % (32.0-36.0); MEAN PLATELET VOLUME 8.6 FL (7.0-11.0); MONO % 8.4 % (0.0-8.0); MONOCYTE # 0.6 TH/MM3 (0-0.9); NEUT % 64.7 % (16.0-70.0); PLATELET COUNT 143 TH/MM3 (150-450); RED BLOOD COUNT 4.21 MIL/MM3 (4.00-5.30); RED CELL DISTRIBUTION WIDTH 13.9 % (11.6-17.2); WHITE BLOOD COUNT 6.9 TH/MM3 (4.0-11.0)
[2017-12-18 04:56] LABS: ALBUMIN 3.3 GM/DL (3.4-5.0); ALT (GPT) 15 U/L (10-53); AST (GOT) 13 U/L (15-37); BICARBONATE 25.4 MEQ/L (21.0-32.0); BLOOD UREA NITROGEN 14 MG/DL (7-18); CALCIUM 8.6 MG/DL (8.5-10.1); CHLORIDE 109 MEQ/L (98-107); CREATININE 0.75 MG/DL (0.50-1.00); GLOMERULAR FILTRATION RATE 75 ML/MIN (>89); GLUCOSE,RANDOM 91 MG/DL (74-106); PHOSPHORUS 2.6 MG/DL (2.5-4.9); SODIUM (NA) 141 MEQ/L (136-145)
[2017-12-18 04:58] LABS: ALKALINE PHOSPHATASE 73 U/L (45-117); TOTAL BILIRUBIN ADULT 0.7 MG/DL (0.2-1.0); TOTAL PROTEIN 6.5 GM/DL (6.4-8.2)
[2017-12-18 06:13] LABS: INTERNATIONAL NORMALIZED RATIO 1.1 RATIO; PROTHROMBIN TIME - PATIENT 10.7 SEC (9.8-11.6)
[2017-12-18] MEDS: FAMOTIDINE 20 MG/2 ML VIAL IV PUSH SCH (08:34)
[2017-12-18] MEDS: DOCUSATE SODIUM 50 MG/SENNA 8.6 MG TAB PO SCH (08:34)
[2017-12-18] MEDS: LISINOPRIL 10 MG TAB PO SCH (08:34)
[2017-12-18] MEDS: SODIUM CHLORIDE 0.9% FLUSH 10 ML FLUSH IV FLUSH SCH (08:35)
[2017-12-18] MEDS: VENLAFAXINE HCL XR 37.5 MG CAP PO SCH (08:35)
[2017-12-18] MEDS: PRAVASTATIN SOD 20 MG TAB PO SCH (08:35)
[2017-12-18] MEDS: SODIUM CHLOR 0.9% 1000 ML INJ 1,000 ML IV SCH (13:25)
--- NOTE | 2017-12-18 16:38 | HHI.PR ---
Subjective Remarks Patient was resting comfortably in bed. Her family was at the bedside. Their questions were answered. They wanted to know if they would transition to a regular floor. The patient said that she has not been sleeping that well at night. Objective Vitals Vital Signs Date Time Temp Pulse Resp B/P (MAP) Pulse Ox O2 Delivery O2 Flow Rate FiO2 12/18/17 14:00 75 12/18/17 12:00 75 12/18/17 12:00 98.1 75 20 178/81 (113) 95 12/18/17 10:00 82 12/18/17 08:26 97 Nasal Cannula 2.00 12/18/17 08:00 97.9 68 17 171/81 (111) 92 12/18/17 08:00 83 12/18/17 07:00 95 Room Air 12/18/17 06:00 68 12/18/17 04:00 97.9 59 22 165/76 (105) 93 12/18/17 04:00 59 12/18/17 02:00 85 12/18/17 00:00 68 12/18/17 00:00 97.9 68 20 155/79 (104) 93 12/17/17 22:00 64 12/17/17 20:00 92 Room Air 12/17/17 20:00 98.0 65 19 154/70 (98) 93 12/17/17 20:00 72 12/17/17 19:33 94 21 12/17/17 18:00 71 I/O 12/17/17 12/17/17 12/17/17 12/18/17 12/18/17 12/18/17 07:00 15:00 23:00 07:00 15:00 23:00 Intake Total 0 ml 2041 ml 100 ml Balance 0 ml 2041 ml 100 ml Intake Oral 0 ml 480 ml 100 ml IV Total 1561 ml # Voids 3 3 # Bowel Movements 0 Result Diagram: 12/18/17 0344 12/18/17 0344 Imaging Last Impressions Head CT 12/18/17 0000 Signed Impressions: Service Date/Time: Monday, December 18, 2017 01:55 - CONCLUSION: 1. No significant intra-or extra-axial hemorrhage following TPA. 2. No acute intracranial abnormality. Von Milner MD Brain MRI 2/26/18 0000 Signed Impressions: Service Date/Time: Sunday, December 17, 2017 12:31 - CONCLUSION: No evidence of acute infarct, hemorrhage, mass or edema. Joseph Schultz MD Neck CTA [id number] Signed Impressions: Service Date/Time: Saturday, December 16, 2017 23:53 - CONCLUSION: 1. No significant carotid flow-limiting stenosis. 2. Patent bilateral vertebral arteries. Von Milner MD Head CTA [id number] Signed Impressions: Service Date/Time: Saturday, December 16, 2017 23:53 - CONCLUSION: 1. Unremarkable head CTA. Specifically, no evidence for significant flow limiting stenosis or large vessel occlusion. Von Milner MD Objective Remarks GENERAL: Well-nourished, well-developed patient. SKIN: Warm and dry. HEAD: Normocephalic. EYES: No scleral icterus. No injection or drainage. NECK: Supple, trachea midline. No JVD or lymphadenopathy. CARDIOVASCULAR: Regular rate and rhythm without murmurs, gallops, or rubs. RESPIRATORY: Breath sounds equal bilaterally. No accessory muscle use. GASTROINTESTINAL: Abdomen soft, non-tender, nondistended. MUSCULOSKELETAL: No cyanosis, or edema. BACK: Nontender without obvious deformity. NEURO: The patient is alert and oriented to person, place, and time with normal speech. There is a facial droop on the right. PSYCH: Mood and affect appropriate. Medications and IVs Current Medications Medications (Trade) Dose Ordered Sig/Rajni Route Start Time Stop Time Status Last Admin (Xalatan 0.005% Opth Soln) 1 drop HS EACH EYE 12/17/17 21:00 12/17/17 23:00 (Pravachol) 20 mg DAILY PO 12/17/17 09:00 12/18/17 08:35 (Effexor Xr) 37.5 mg DAILY PO 12/17/17 09:00 12/18/17 08:35 Sodium Chloride 1,000 ml @ 84 mls/hr [id number] IV 12/17/17 02:00 12/17/17 21:53 (NS Flush) 2 ml UNSCH PRN IV FLUSH 12/17/17 02:00 (NS Flush) 2 ml BID IV FLUSH 12/17/17 09:00 12/18/17 08:35 (Tylenol) 650 mg Q6H PRN PO 12/17/17 02:00 12/18/17 09:26 (Pepcid Inj) 20 mg Q12HR IV PUSH 12/17/17 09:00 12/18/17 08:34 (Zofran Inj) 4 mg Q6H PRN IV PUSH 12/17/17 02:00 (Restoril) 15 mg HS PRN PO 12/17/17 02:00 12/18/17 02:16 (Duoneb Neb) 1 ampule Q2HR NEB PRN INH 12/17/17 02:00 (Heparin Inj) 5,000 units Q12H SQ 12/18/17 02:00 12/18/17 14:22 Miscellaneous Information 1 Q361D XX 12/17/17 02:00 (Chlorhexidine 2% Cloth) 3 pack Taper DAILY@04 TOP 12/17/17 04:00 12/13/18 03:59 (Chlorhexidine 2% Cloth) 3 pack UNSCH PRN TOP 12/17/17 02:00 (Lesli-Colace) 1 tab BID PO 12/17/17 09:00 12/18/17 08:34 (Milk Of Magnesia Liq) 30 ml Q12H PRN PO 12/17/17 02:00 (Senokot) 17.2 mg Q12H PRN PO 12/17/17 02:00 (Dulcolax Supp) 10 mg DAILY PRN RECTAL 12/17/17 02:00 (Lactulose Liq) 30 ml DAILY PRN PO 12/17/17 02:00 Potassium Chloride 100 ml @ 50 mls/hr Q2H PRN IV 12/17/17 02:30 Potassium Chloride 100 ml @ 50 mls/hr Q2H PRN IV 12/17/17 02:30 (K-Lyte Cl Eff) 50 meq UNSCH PRN PO 12/17/17 02:30 12/18/17 14:30 Potassium Chloride 100 ml @ 25 mls/hr UNSCH PRN IV 12/17/17 02:30 Potassium Chloride 100 ml @ 50 mls/hr Q2H PRN IV 12/17/17 02:30 Magnesium Sulfate 4 gm/Sodium Chloride 100 ml @ 50 mls/hr UNSCH PRN IV 12/17/17 02:30 (Mag-Ox) 800 mg UNSCH PRN PO 12/17/17 02:30 Magnesium Sulfate 2 gm/Sodium Chloride 100 ml @ 50 mls/hr UNSCH PRN IV 12/17/17 02:30 (K-Phos) 2,000 mg Q4H PRN PO 12/17/17 02:30 Sodium Phosphate 30 mmol/Sodium Chloride 250 ml @ 42 mls/hr UNSCH PRN IV 12/17/17 02:30 (K-Phos) 2,000 mg UNSCH PRN PO/TUBE 12/17/17 02:30 Potassium Phosphate 30 mmol/ Sodium Chloride 260 ml @ 42 mls/hr UNSCH PRN IV 12/17/17 02:30 (Prinivil) 20 mg DAILY PO 12/19/17 09:00 A/P Assessment and Plan CVA/TIA/Bahena's Palsy CTA, CT, MRI negative. Status post TPA administration. Echo with grade 1 diastolic dysfunction. - Hemoglobin A1c and lipid profile. - Blood pressure goal less than 180. - PT/ OT/ ST. - check B12 and TSH levels. - Medrol dose pack and antivirals x 1 week per neurology. Hypertension Blood pressure elevated. - Resume home dose of lisinopril, increase to 20 mg daily. Dyslipidemia - Atorvastatin - check lipid profile. DVT: Heparin Discharge Planning D/c home as cleared by neurology Mayur Rodriguez DO Dec 18, 2017 16:38
[2017-12-18] MEDS ORDERED: LISINOPRIL 10 MG TAB PO ONE (16:45)
[2017-12-18] MEDS ORDERED: ZOLPIDEM TARTRATE 5 MG TAB PO PRN (17:15)
[2017-12-18] MEDS ORDERED: LISI-515 PO (17:19)
[2017-12-18] MEDS ORDERED: VALA1TAB PO (17:19)
[2017-12-18] MEDS ORDERED: PRED20 PO (17:19)
--- NOTE | 2017-12-18 17:22 | HHI.PR ---
Review/Management Daily Summary 12/18 right Bahena's palsy sl worse today suggest d/c on medrol dosepak, valtrex for 1 week wrote for lacrilube ointment and also instructed pt and to use artificial tears/saline as much as needed to keep od moist lacrilube instructions given for night time can be seen in office in 2 weeks Subjective Subjective Comments No acute events reported No headache No chest pain No dyspnea Active Medications Current Medications Medications (Trade) Dose Ordered Sig/Rajni Route Start Time Stop Time Status Last Admin (Xalatan 0.005% Opth Soln) 1 drop HS EACH EYE 12/17/17 21:00 12/17/17 23:00 (Pravachol) 20 mg DAILY PO 12/17/17 09:00 12/18/17 08:35 (Effexor Xr) 37.5 mg DAILY PO 12/17/17 09:00 12/18/17 08:35 (NS Flush) 2 ml UNSCH PRN IV FLUSH 12/17/17 02:00 (NS Flush) 2 ml BID IV FLUSH 12/17/17 09:00 12/18/17 08:35 (Tylenol) 650 mg Q6H PRN PO 12/17/17 02:00 12/18/17 09:26 (Pepcid Inj) 20 mg Q12HR IV PUSH 12/17/17 09:00 12/18/17 08:34 (Zofran Inj) 4 mg Q6H PRN IV PUSH 12/17/17 02:00 (Duoneb Neb) 1 ampule Q2HR NEB PRN INH 12/17/17 02:00 (Heparin Inj) 5,000 units Q12H SQ 12/18/17 02:00 12/18/17 14:22 Miscellaneous Information 1 Q361D XX 12/17/17 02:00 (Chlorhexidine 2% Cloth) 3 pack Taper DAILY@04 TOP 12/17/17 04:00 12/13/18 03:59 (Chlorhexidine 2% Cloth) 3 pack UNSCH PRN TOP 12/17/17 02:00 (Lesli-Colace) 1 tab BID PO 12/17/17 09:00 12/18/17 08:34 (Milk Of Magnesia Liq) 30 ml Q12H PRN PO 12/17/17 02:00 (Senokot) 17.2 mg Q12H PRN PO 12/17/17 02:00 (Dulcolax Supp) 10 mg DAILY PRN RECTAL 12/17/17 02:00 (Lactulose Liq) 30 ml DAILY PRN PO 12/17/17 02:00 Potassium Chloride 100 ml @ 50 mls/hr Q2H PRN IV 12/17/17 02:30 Potassium Chloride 100 ml @ 50 mls/hr Q2H PRN IV 12/17/17 02:30 (K-Lyte Cl Eff) 50 meq UNSCH PRN PO 12/17/17 02:30 12/18/17 14:30 Potassium Chloride 100 ml @ 25 mls/hr UNSCH PRN IV 12/17/17 02:30 Potassium Chloride 100 ml @ 50 mls/hr Q2H PRN IV 12/17/17 02:30 Magnesium Sulfate 4 gm/Sodium Chloride 100 ml @ 50 mls/hr UNSCH PRN IV 12/17/17 02:30 (Mag-Ox) 800 mg UNSCH PRN PO 12/17/17 02:30 Magnesium Sulfate 2 gm/Sodium Chloride 100 ml @ 50 mls/hr UNSCH PRN IV 12/17/17 02:30 (K-Phos) 2,000 mg Q4H PRN PO 12/17/17 02:30 Sodium Phosphate 30 mmol/Sodium Chloride 250 ml @ 42 mls/hr UNSCH PRN IV 12/17/17 02:30 (K-Phos) 2,000 mg UNSCH PRN PO/TUBE 12/17/17 02:30 Potassium Phosphate 30 mmol/ Sodium Chloride 260 ml @ 42 mls/hr UNSCH PRN IV 12/17/17 02:30 (Prinivil) 20 mg DAILY PO 12/19/17 09:00 (Ambien) 5 mg HS PRN PO 12/18/17 17:15 UNV Allergies Allergies Coded Allergies No Known Allergies ([id number]/13) Exam I&O / VS Vital Signs Date Time Temp Pulse Resp B/P (MAP) Pulse Ox O2 Delivery O2 Flow Rate FiO2 12/18/17 14:00 75 12/18/17 12:00 75 12/18/17 12:00 98.1 75 20 178/81 (113) 95 12/18/17 10:00 82 12/18/17 08:26 97 Nasal Cannula 2.00 12/18/17 08:00 97.9 68 17 171/81 (111) 92 12/18/17 08:00 83 12/18/17 07:00 95 Room Air 12/18/17 06:00 68 12/18/17 04:00 97.9 59 22 165/76 (105) 93 12/18/17 04:00 59 12/18/17 02:00 85 12/18/17 00:00 68 12/18/17 00:00 97.9 68 20 155/79 (104) 93 12/17/17 22:00 64 12/17/17 20:00 92 Room Air 12/17/17 20:00 98.0 65 19 154/70 (98) 93 12/17/17 20:00 72 12/17/17 19:33 94 21 12/17/17 18:00 71 Objective Radiology Results Last [address] 12/18/17 0000 Signed Impressions: Service Date/Time: Monday, December 18, 2017 01:55 - CONCLUSION: 1. No significant intra-or extra-axial hemorrhage following TPA. 2. No acute intracranial abnormality. Von Milner MD Brain MRI 12/17/17 0000 Signed Impressions: Service Date/Time: Sunday, December 17, 2017 12:31 - CONCLUSION: No evidence of acute infarct, hemorrhage, mass or edema. Joseph Schultz MD Neck CTA 12/16/179 Signed Impressions: Service Date/Time: Saturday, December 16, 2017 23:53 - CONCLUSION: 1. No significant carotid flow-limiting stenosis. 2. Patent bilateral vertebral arteries. Von Milner MD Head CTA 12/16/179 Signed Impressions: Service Date/Time: Saturday, December 16, 2017 23:53 - CONCLUSION: 1. Unremarkable head CTA. Specifically, no evidence for significant flow limiting stenosis or large vessel occlusion. Von Milner MD Micro and Labs Laboratory Tests Test 12/18/17 03:44 12/18/17 05:30 White Blood Count 6.9 Red Blood Count 4.21 Hemoglobin 11.3 Hematocrit 33.6 Mean Corpuscular Volume 79.9 Mean Corpuscular Hemoglobin 26.7 Mean Corpuscular Hemoglobin Concent 33.5 Red Cell Distribution Width 13.9 Platelet Count 143 Mean Platelet Volume 8.6 Neutrophils (%) (Auto) 64.7 Lymphocytes (%) (Auto) 23.0 Monocytes (%) (Auto) 8.4 Eosinophils (%) (Auto) 2.8 Basophils (%) (Auto) 1.1 Neutrophils # (Auto) 4.5 Lymphocytes # (Auto) 1.6 Monocytes # (Auto) 0.6 Eosinophils # (Auto) 0.2 Basophils # (Auto) 0.1 CBC Comment DIFF FINAL Differential Comment Blood Urea Nitrogen 14 Creatinine 0.75 Random Glucose 91 Total Protein 6.5 Albumin 3.3 Calcium Level 8.6 Phosphorus Level 2.6 Magnesium Level 2.0 Alkaline Phosphatase 73 Aspartate Amino Transf (AST/SGOT) 13 Alanine Aminotransferase (ALT/SGPT) 15 Total Bilirubin 0.7 Sodium Level 141 Potassium Level 3.5 Chloride Level 109 Carbon Dioxide Level 25.4 Anion Gap 7 Estimat Glomerular Filtration Rate 75 Prothrombin Time 10.7 Prothromb Time International Ratio 1.1 Activated Partial Thromboplast Time 25.2 Merry Benson MD Dec 18, 2017 17:22
--- NOTE | 2017-12-18 17:23 | HHI.DCPOC ---
Discharge Care Plan Diagnosis: (1) Bahena's palsy (2) HTN (hypertension) Goals to Promote Your Health * To prevent worsening of your condition and complications * To maintain your health at the optimal level Directions to Meet Your Goals Take your medications as prescribed Follow your dietary instruction Follow activity as directed Keep your appointments as scheduled Take your immunizations and boosters as scheduled If your symptoms worsen call your PCP, if no PCP go to Urgent Care Center or Emergency Room Smoking is Dangerous to Your Health. Avoid second hand smoke Call the 24-hour hour crisis hotline for domestic abuse at Mayur Rodriguez DO Dec 18, 2017 17:21
--- NOTE | 2017-12-18 17:24 | HHI.DCPOC ---
Discharge Care Plan Diagnosis: (1) Bahena's palsy (2) HTN (hypertension) Goals to Promote Your Health * To prevent worsening of your condition and complications * To maintain your health at the optimal level Directions to Meet Your Goals Take your medications as prescribed Follow your dietary instruction Follow activity as directed Keep your appointments as scheduled Take your immunizations and boosters as scheduled If your symptoms worsen call your PCP, if no PCP go to Urgent Care Center or Emergency Room Smoking is Dangerous to Your Health. Avoid second hand smoke Call the 24-hour hour crisis hotline for domestic abuse at Mayur Rodriguez DO Dec 18, 2017 17:24
--- NOTE | 2017-12-18 17:25 | HHI.FF ---
Face to Face Verification Diagnosis: (1) Bahena's palsy (2) HTN (hypertension) Physical Therapy Order: Evaluate and Treat, Improve ambulation, Strength and gait training Home Health Nursing Order: Medical education Signs/symptoms of disease process Medication education-adverse effect Nursing assessment with vital signs I have seen patient Ramy Cote on 12/18/17. My clinical findings support the need for the requested home health care services because: Ltd mobility - disease progression Deconditioned w/ increased weakness I certify that my clinical findings support that this patient is homebound because: Unsteady gait/balance Unsafe to leave home unassisted Mayur Rodriguez DO Dec 18, 2017 17:25
[2017-12-18 18:03] LABS: CHOLESTEROL 181 MG/DL (120-200); TRIGLYCERIDES 110 MG/DL (42-150)
[2017-12-18 18:27] LABS: CHOLESTEROL/ HDL RATIO 2.71 RATIO; HDL CHOLESTEROL 66.6 MG/DL (40.0-60.0); LDL CHOLESTEROL 92 MG/DL (0-99)
[2017-12-18 22:19] LABS: HEMOGLOBIN A1C 5.8 % (4.3-6.0)
[2017-12-19] MEDS ORDERED: LISINOPRIL 20 MG TAB PO SCH (09:00)
--- NOTE | 2017-12-19 11:50 | HHI.FF ---
Face to Face Verification Diagnosis: (1) HTN (hypertension) (2) Bahena's palsy Physical Therapy Order: Evaluate and Treat, Improve ambulation, Strength and gait training I have seen patient Ramy Cote on 12/19/17. My clinical findings support the need for the requested home health care services because: Ltd mobility - disease progression Deconditioned w/ increased weakness Limited ability to care for self High risk of falls I certify that my clinical findings support that this patient is homebound because: Unsteady gait/balance Unsafe to leave home unassisted Mayur Rodriguez DO Dec 19, 2017 11:50
== END 2017-12-18 21:07 | disposition home health service (06) | DRG 74 ==
LOC: NEPE 23:30 → NEDA 12-17 00:53 → N03B 12-17 02:17
PROVIDERS: ADMIT Hospitalist; ATTEND Hospitalist
DX: G51.0 Bell's palsy (principal); I10 Essential (primary) hypertension; E78.5 Hyperlipidemia, unspecified; H40.9 Unspecified glaucoma; R47.81 Slurred speech; F40.240 Claustrophobia; R29.704 NIHSS score 4
CPT/HCPCS: 70450; 70496; 70498; 70551; 80048; 80053; 80061; 80307; 81001; 82550; 82607; 83036; 83735; 84100; 84443; 84484; 84702; 85025; 85384; 85610; 85730; 86850; 86900; 86901; 87641; 93005; 93306; 96374; 99291; J1644; J2060; J2997; J7030